=== PATIENT | female | born 1985 | race Caucasian/White ===

== ENCOUNTER 2020-04-27 00:36 | Day surgery (SDC) | payer OTHER, SELFPAY ==
--- NOTE | 2020-04-26 13:37 | WPDANESEPPF ---
Anes - Initial Pre Proc Eval Procedure: Operation Date: 04/27/20 10:45 Proposed Procedures p Suction Dilation and Curettage - Scarlett Lane MD Date/Time: 04/26/20 13:37 Surgeon: Scarlett Lane MD Pre Op Diagnosis: Missed Patient Data Age: 35 Gender: F Height: 1.63 m Weight: 79.4 kg Allergies Allergy/AdvReac Type Severity Reaction Status Date / Time No Known Allergies Allergy Unverified 04/27/20 09:06 Home Medications Medication Instructions Recorded Confirmed Type metronidazole 500 mg BID 04/26/20 04/27/20 History Patient hx anesthesia problems: none Family hx anesthesia problems: none [facility] Past Medical History Medical History (Updated 04/27/20 @ 09:28 by German Anne DO) Psoriasis Social History Social History Years smoked: 16 Smoking status: Current every day smoker Tobacco type: cigarettes Second hand tobacco smoke exposure: Yes Alcohol intake: current Drinks per week: 6 Substance use: never Living arrangements: with family Spiritual care concerns: No Anes - Eval Final PreProcedure Day of Procedure 04/26/20 13:37 Patient weight: obese Heart: regular rate and rhythm Lungs: clear to auscultation and normal air movement Airway: Mallampati scale class II Neurological: alert and oriented Last oral intake: >/= 8 hours ASA classification: II Emergent: no Anesthetic plan: proceed Anesthesia type and monitoring: general GIVS and standard monitoring Informed Consent: The patient's anesthetic plan and its attendant risks and benefits were discussed with the patient/family/POA. Questions were solicited and answers provided to the satisfaction of the patient/family/POA.
--- NOTE | 2020-04-27 08:33 | WPDHPUPDATE1 ---
History and Physical Update Update Date/Time: 04/27/20 08:33 History and Physical has been reviewed, including an updated exam of the patient. There are NO changes in the patient's condition. Risks, benefits, and alternatives have been discussed and questions answered. Patient agrees to proceed with procedure.
--- NOTE | 2020-04-27 08:44 | PM.IMHP ---
H&P: HPI History of Present Illness Date/Time: 04/27/20 08:44 Chief complaint: Missed Narrative: Chantal Hernández is a 35 year old female with a incomplete . She is treated previous Cytotec and continues to have some retained products conception. We agreed to perform suction D&C. She understands that injuries can occur that result in severe illness, hospitalization, and more surgery. She understands risk of hemorrhage and infection. Review of Systems Constitutional: Constitutional: Reports no additional constitutional complaints, Denies fatigue, Denies headache(s), Denies lethargy and Denies weakness Eyes: Eyes: Reports no additional eye complaints, Denies blurry vision and Denies photophobia ENT: Reports as per HPI, Denies headache(s) and Denies neck pain Cardiovascular: Cardiovascular: Denies chest pain, Denies diaphoresis, Denies leg edema, Denies palpitations and Denies dyspnea Respiratory: Respiratory: Denies hemoptysis, Denies dyspnea and Denies wheezing Gastrointestinal: Gastrointestinal: Denies abdominal pain, Denies melena, Denies bloating, Denies hematochezia, Denies nausea and Denies vomiting Genitourinary: Genitourinary: Reports no additional female genitourinary complaints Musculoskeletal: Musculoskeletal: Denies joint swelling, Denies neck pain, Denies numbness and Denies stiffness Neurologic: Denies Abnormal speech present, Denies confusion, Denies headache(s), Denies numbness and Denies weakness Psychiatric: Psychiatric: Denies anxiety, Denies confusion, Denies depression, Denies homicidal ideation and Denies suicidal ideation Endocrine: Endocrine: Denies fatigue and Denies palpitations Allergic/Immunologic: Allergic/Immunologic: Denies wheezing PMFSH Social History Social History Years smoked: 16 Smoking status: Current every day smoker Tobacco type: cigarettes Second hand tobacco smoke exposure: Yes Alcohol intake: current Drinks per week: 6 Substance use: never Living arrangements: with family Spiritual care concerns: No Meds Home Medications and Allergies Home Medications Medication Instructions Recorded Confirmed Type metronidazole 500 mg BID 04/26/20 04/26/20 History Allergies Allergy/AdvReac Type Severity Reaction Status Date / Time No Known Allergies Allergy Unverified 06/09/18 14:21 Assessment and Plan Assessment and plan (1) Incomplete : Code(s): O03.4 - Incomplete spontaneous without complication Status: Acute Assessment and Plan: This patient is a 35-year-old female with incomplete . We have agreed to proceed with suction D&C. She understands the risks, benefits, and alternatives. She has completed the informed consent process is ready to proceed.
--- NOTE | 2020-04-27 08:47 | WPDHPUPDATE1 ---
History and Physical Update Update Date/Time: 04/27/20 08:47 History and Physical has been reviewed, including an updated exam of the patient. There are NO changes in the patient's condition. Risks, benefits, and alternatives have been discussed and questions answered. Patient agrees to proceed with procedure.
[2020-04-27 08:55] VITALS: BP 113/71; PULSE 82; RESP 16; TEMP 37; O2SAT 99
[2020-04-27] MEDS: ACETAMINOPHEN 500 MG TABLET 1000 MG PO (09:15)
[2020-04-27] MEDS: LACTATED RINGERS 1,000 ML 30 ML IV CONT (09:23)
--- NOTE | 2020-04-27 09:23 | WPDHPUPDATE1 ---
History and Physical Update Update Date/Time: 04/27/20 09:23 History and Physical has been reviewed, including an updated exam of the patient. There are NO changes in the patient's condition. Risks, benefits, and alternatives have been discussed and questions answered. Patient agrees to proceed with procedure.
[2020-04-27] MEDS: LIDOCAINE HCL 1% LOCAL INJ 20 ML VIAL 10 ML INFILTRATE (11:08)
[2020-04-27] MEDS: KETOROLAC 30 MG/ML VIAL (*BKC) 15 MG IV PUSH (11:15)
--- NOTE | 2020-04-27 11:24 | PM.PROC ---
Procedure Note - Detailed Date of procedure: 04/27/20 Pre-op diagnosis: Missed Post-op diagnosis: same Procedure performed: Suction D&C Description of procedure: The patient was taken the operating room. She has prepped and draped in dorsal lithotomy position after induction of mac anesthesia. A speculum was placed in the vagina. The cervix was grasped with a tenaculum. The cervix was injected at 3 and 9:00 a.m. with 1% lidocaine. The cervix was dilated up to 8 mm using Reed dilators. An 8 curved plastic suction curette was then applied to the intrauterine cavity. All of the surfaces in the intrauterine cavity were curettage under VAC. A sharp medium-size curette was then used to curettage all the surfaces to confirmed the removal of all the products conception. When all surfaces for bleed to be clean the curette was removed. The suction curette was then reapplied to remove all the debris. The procedure was terminated. The tenaculum was removed. The speculum was removed. The patient tolerated the procedure well. She was taken recovery room in stable condition. Anesthesia: MAC Surgeon: Scarlett Lane MD Estimated blood loss (mL): 25 Drains: No Packing: No Pathology: yes Complications: No immediate complications Condition: stable Disposition: PACU Findings: Normal vulva vagina and cervix. The moderate amounts of products conception. 8 cm uterus.
[2020-04-27 11:25] VITALS: BP 110/60; PULSE 65; RESP 12; O2SAT 99
[2020-04-27 11:40] VITALS: BP 112/68; PULSE 72; RESP 16
[2020-04-27 12:10] VITALS: BP 124/75; PULSE 57; RESP 16
[2020-04-27 12:25] VITALS: BP 116/71; PULSE 55; RESP 16
== END 2020-04-27 12:49 | disposition home or self-care (01) ==
PROVIDERS: PCP Internal Medicine; Visit Provider Obstetrics & Gynecology
PROC: (CPT 59820; principal; 2020-04-27 10:45)
DX: O02.1 Missed abortion (principal); L40.9 Psoriasis, unspecified; F17.210 Nicotine dependence, cigarettes, uncomplicated
CPT/HCPCS: 59820; 88305; A9270; J1885; J2250; J2405; J2704; J3010; J7120

== ENCOUNTER → 2020-10-01 01:43 | Outpatient (CLI) | payer OTHER, SELFPAY ==
[2020-10-01 19:16] LABS: SARS-CoV-2 RNA PCR Negative
== END ==
PROVIDERS: PCP Internal Medicine; Visit Provider Obstetrics & Gynecology
DX: Z01.812 Encounter for preprocedural laboratory examination (principal); Z20.822 Contact with and (suspected) exposure to COVID-19
CPT/HCPCS: C9803; U0003; U0005

== ENCOUNTER 2020-10-05 01:46 | Day surgery (SDC) | payer OTHER, SELFPAY ==
[2020-09-30 15:22] VITALS: BMI 29.1
[2020-10-05] MEDS: ACETAMINOPHEN 500 MG TABLET 1000 MG PO (07:03)
[2020-10-05] MEDS: LACTATED RINGERS 1,000 ML 30 ML IV CONT ×2 (07:03→08:35)
--- NOTE | 2020-10-05 07:18 | WPDANESEPPF ---
Anes - Initial Pre Proc Eval Procedure: Operation Date: 10/05/20 08:30 Proposed Procedures p Suction Dilatation And Curettage - Scarlett Lane MD Date/Time: 10/05/20 07:18 Surgeon: Scarlett Lane MD Pre Op Diagnosis: missed ab Patient Data Age: 35 Gender: F Height: 1.63 m Weight: 77 kg Allergies Allergy/AdvReac Type Severity Reaction Status Date / Time No Known Allergies Allergy Unverified 09/30/20 15:20 Home Medications Medication Instructions Recorded Confirmed Type melatonin 10 mg PO HS PRN 09/30/20 09/30/20 History Patient hx anesthesia problems: none Family hx anesthesia problems: none PMFSH Past Medical History Medical History (Updated 10/04/20 @ 13:20 by German Anne DO) Anxiety Depression Psoriasis Surgical History Surgical History (Updated 10/04/20 @ 13:20 by German Anne DO) History of Social History Social History Smoking packs per day: 0.5 Smoking cigarettes per day: 10.0 Years smoked: 13 Smoking pack-years: 6.50 Smoking status: Current every day smoker Tobacco type: cigarettes Second hand tobacco smoke exposure: Yes Alcohol intake: current Drinks per week: 6 Substance use: never Substance use type: does not use Living arrangements: with family Spiritual care concerns: No Anes - Eval Final PreProcedure Day of Procedure 10/05/20 07:18 Patient weight: overweight Heart: regular rate and rhythm Lungs: clear to auscultation and normal air movement Airway: Mallampati scale class II Neurological: alert and oriented Last oral intake: >/= 8 hours ASA classification: II Emergent: no Anesthetic plan: proceed Anesthesia type and monitoring: general GIVS and standard monitoring Informed Consent: The patient's anesthetic plan and its attendant risks and benefits were discussed with the patient/family/POA. Questions were solicited and answers provided to the satisfaction of the patient/family/POA.
--- NOTE | 2020-10-05 07:28 | PM.IMHP ---
H&P: HPI History of Present Illness Date/Time: 10/05/20 07:28 this patient is a 35-year-old multiparous female with a missed in the 1st trimester. We have agreed to perform suction D&C. She understands that this injuries may occur during this procedure. She understands the procedure well. She understands that injuries can result in hospitalization, more surgery, and severe illness. She understands there is risk of hemorrhage and infection. Chief Complaint: missed ab Review of Systems Constitutional: Constitutional: Reports no additional constitutional complaints, Denies fatigue, Denies headache(s), Denies lethargy and Denies weakness Eyes: Eyes: Reports no additional eye complaints, Denies blurry vision and Denies photophobia ENT: Reports as per HPI, Denies headache(s) and Denies neck pain Cardiovascular: Cardiovascular: Denies chest pain, Denies diaphoresis, Denies leg edema, Denies palpitations and Denies dyspnea Respiratory: Respiratory: Denies hemoptysis, Denies dyspnea and Denies wheezing Gastrointestinal: Gastrointestinal: Denies abdominal pain, Denies melena, Denies bloating, Denies hematochezia, Denies nausea and Denies vomiting Genitourinary: Genitourinary: Reports no additional female genitourinary complaints Musculoskeletal: Musculoskeletal: Denies joint swelling, Denies neck pain, Denies numbness and Denies stiffness Neurologic: Denies Abnormal speech present, Denies confusion, Denies headache(s), Denies numbness and Denies weakness Psychiatric: Psychiatric: Denies anxiety, Denies confusion, Denies depression, Denies homicidal ideation and Denies suicidal ideation Endocrine: Endocrine: Denies fatigue and Denies palpitations Allergic/Immunologic: Allergic/Immunologic: Denies wheezing PMFSH Past Medical History Medical History (Updated 10/04/20 @ 13:20 by German Anne DO) Anxiety Depression Psoriasis Surgical History Surgical History (Updated 10/04/20 @ 13:20 by German Anne DO) History of Social History Social History Smoking packs per day: 0.5 Smoking cigarettes per day: 10.0 Years smoked: 13 Smoking pack-years: 6.50 Smoking status: Current every day smoker Tobacco type: cigarettes Second hand tobacco smoke exposure: Yes Alcohol intake: current Drinks per week: 6 Substance use: never Substance use type: does not use Living arrangements: with family Spiritual care concerns: No Meds Home Medications and Allergies Home Medications Medication Instructions Recorded Confirmed Type melatonin 10 mg PO HS PRN 09/30/20 09/30/20 History Allergies Allergy/AdvReac Type Severity Reaction Status Date / Time No Known Allergies Allergy Unverified 09/30/20 15:20 Exam Const: General: healthy appearing, comfortable and no acute distress; No confusion Orientation/consciousness: No confusion Eyes: Direct Ophthalmoscopy: No photophobia Resp: Auscultation: clear to auscultation bilaterally, no rales, no rhonchi and no wheezes Cardio: Rate: regular rate Heart sounds: no click, no murmurs and no rubs GI: Inspection: non-distended GI Palp: No abdominal tenderness Auscultation: normal bowel sounds Neuro: General: No confusion Speech: No Abnormal speech present Extrem: General: normal to inspection, no pedal edema and no calf tenderness Assessment and Plan Assessment and plan (1) Incomplete : Code(s): O03.4 - Incomplete spontaneous without complication Status: Acute Assessment and Plan: This patient is a 35 an incomplete or missed . We have agreed to perform suction D&C. She understands the risks, benefits, and alternatives. She has completed the informed consent process and is ready to proceed.
[2020-10-05 07:30] VITALS: BP 91/50; PULSE 88; RESP 16; TEMP 36.9; O2SAT 100
[2020-10-05 08:35] VITALS: BP 94/61; PULSE 85; RESP 16; O2SAT 97
--- NOTE | 2020-10-05 08:40 | P.OP_ITS ---
Procedure Note - Detailed Date of procedure: 10/05/20 Pre-op diagnosis: missed ab Post-op diagnosis: same Procedure performed: Suction D&C Description of procedure: The patient was taken the operating room. She has prepped and draped in dorsal lithotomy position after induction of mac anesthesia. A speculum was placed in the vagina. The cervix was grasped with a tenaculum. The cervix was injected at 3 and 9:00 a.m. with 1% lidocaine. The cervix was dilated up to 8 mm using Reed dilators. An 8 curved plastic suction curette was then applied to the intrauterine cavity. All of the surfaces in the intrauterine cavity were curettage under VAC. A sharp medium-size curette was then used to curettage all the surfaces to confirmed the removal of all the products conception. When all surfaces for bleed to be clean the curette was r emoved. The suction curette was then reapplied to remove all the debris. The procedure was terminated. The tenaculum was removed. The speculum was removed. The patient tolerated the procedure well. She was taken recovery room in stable condition. Anesthesia: MAC Surgeon: Scarlett Lane MD Estimated blood loss (mL): 25 Drains: No Packing: No Pathology: yes Complications: No immediate complications Condition: stable Disposition: PACU Findings: Normal vulva vagina and cervix. The moderate amounts of products conception. 8 cm uterus.
--- NOTE | 2020-10-05 08:48 | SUR.PHASEII ---
Patient has O+ blood type. No Rhogam needed.
[2020-10-05 09:05] VITALS: BP 92/58; PULSE 71; O2SAT 96
[2020-10-05] MEDS: oxyCODONE HCL (*CRX) 5 MG TAB IR PO (09:11)
[2020-10-05 09:25] VITALS: BP 113/68; PULSE 74
== END 2020-10-05 09:32 | disposition home or self-care (01) ==
PROVIDERS: PCP Internal Medicine; Visit Provider Obstetrics & Gynecology
DX: O02.1 Missed abortion (principal); F17.210 Nicotine dependence, cigarettes, uncomplicated
CPT/HCPCS: 59820; 36415; 85461; 88305; A9270; J2250; J2704; J3010; J7030; J7120

== ENCOUNTER 2020-10-27 12:00 | Outpatient (CLI) | payer OTHER, SELFPAY ==
[2020-10-27 13:01] LABS: Beta HCG Quantitative 5.89 mIU/ML
== END 2020-10-27 12:01 | disposition home or self-care (01) ==
LOC: ANHLAB 12:03
PROVIDERS: PCP Internal Medicine; Visit Provider Obstetrics & Gynecology
DX: Z30.9 Encounter for contraceptive management, unspecified (principal)
CPT/HCPCS: 36415; 84702